=== PATIENT | male | born 1975 ===

== ENCOUNTER 2024-05-18 22:26 | Emergency (ER) | payer SELFPAY ==
[~2024-05-18] VITALS: Ht 162.6 cm; Wt 63.6 kg
[2024-05-18] MEDS ORDERED: INSREG SQ (22:39)
[2024-05-18] MEDS ORDERED: METF-1211 PO (22:39)
[2024-05-18 22:55] LABS: GLUCOMETER DEV NAME(LOC) ER.7; GLUCOSE,POINT OF CARE 231 MG/DL (70-110)
[2024-05-18 23:19] LABS: BASOPHILS % (AUTO) 0.5 % (0.0-2.0); EOSINOPHILS % (AUTO) 1.4 % (1.0-6.0); HEMATOCRIT 42.3 % (41-53); HEMOGLOBIN 14.7 g/dL (13.5-17.5); LYMPHOCYTES # (AUTO) 1.6 K/uL (1.0-4.8); LYMPHOCYTES % (AUTO) 32.2 % (22.0-44.0); MEAN CORPUSCULAR HEMOGLOBIN 34.5 pg (26.0-34.0); MEAN CORPUSCULAR HGB CONC 34.8 G/dL (31.0-37.0); MEAN CORPUSCULAR VOLUME 99 fL (80-100); MONOCYTES # (AUTO) 0.4 K/uL (0.1-1.0); NEUTROPHILS # (AUTO) 2.8 K/uL (1.8-7.7); NEUTROPHILS % (AUTO) 56.9 % (40.0-70.0); PLATELET COUNT (AUTO) 160 K/uL (150-450); RED BLOOD CELL COUNT(AUTO) 4.27 MIL/uL (4.50-5.90); RED CELL DISTRIBUTION WIDTH 12.9 % (11.5-14.5); WHITE BLOOD COUNT (AUTO) 4.9 K/uL (4.5-11.0)
[2024-05-18] MEDS: SODIUM CHLORIDE 0.9% 1,000 ML IV ONE (23:22)
[2024-05-18] MEDS: ONDANSETRON HCL 4 MG/2 ML VIAL IVP ONE (23:23)
[2024-05-18 23:29] LABS: ANION GAP 11 mmol/L (8-16); CALCIUM, TOTAL 8.8 mg/dL (8.8-10.5); CARBON DIOXIDE 26 mmol/L (22-29); CHLORIDE 96 mmol/L (98-107); CREATININE 0.95 mg/dL (0.60-1.30); GLOMERULAR FILTR. RATE CALC > 60 mL/min (>60); GLUCOSE,RANDOM 221 mg/dL (70-110); POTASSIUM 3.7 mmol/L (3.5-5.1); SODIUM SERUM 133 mmol/L (136-145); UREA NITROGEN, BLOOD 10 mg/dL (7-18)
[2024-05-18 23:35] LABS: ALANINE AMINOTRANSFERASE 96 U/L (12-78); ALKALINE PHOSPHATASE 112 U/L (46-116); ASPARTATE AMINOTRANSFERASE 105 U/L (15-37); BILIRUBIN,TOTAL 0.6 mg/dL (0.1-1.0); LIPASE 63 U/L (16-77)
[2024-05-18 23:37] LABS: APPEARANCE,URINE CLEAR (CLEAR); BILIRUBIN,URINE NEGATIVE (NEGATIVE); COLOR,URINE COLORLESS (YELLOW); GLUCOSE, URINE (UA) >=1000 mg/dL (NEGATIVE); KETONES,URINE NEGATIVE (NEGATIVE); LEUKOCYTE ESTERASE ,URINE NEGATIVE (NEGATIVE); NITRATE,URINE NEGATIVE (NEGATIVE); OCCULT BLOOD,URINE NEGATIVE (NEGATIVE); PROTEIN,URINE NEGATIVE (NEGATIVE); SPECIFIC GRAVITIY, URINE 1.004 (1.003-1.030); UROBILINOGEN,URINE <=1.0 mg/dL (<=1.0)
[2024-05-18 23:37] LABS: TROPONIN I-HIGH SENSITIVITY 12 ng/L (<76)
[2024-05-18 23:48] LABS: BACTERIA,URINE None Seen /HPF (None Seen); RBC,URINE None Seen /HPF (0-2); SQUAMOUS EPITHELIAL CELL,UR Few /LPF (None Seen); WBC,URINE None Seen /HPF (0-5)
[2024-05-18] MEDS: IOHEXOL 9 MG/ML 500 ML BOTTLE PO ONE (23:53)
[2024-05-19] MEDS ORDERED: SODIUM CHLORIDE 0.9% 100 ML ONE (00:37)
[2024-05-19] MEDS ORDERED: IOHEXOL 350 MG/ML 100 ML VIAL ONE (00:38)
[2024-05-19] MEDS ORDERED: ACET-66 PO (02:57)
[2024-05-19] MEDS ORDERED: OMEP20 PO (02:57)
[2024-05-19] MEDS ORDERED: MAG30ORA11 PO (02:57)
[2024-05-19 03:32] VITALS: BP 133/71; PULSE 70; RESP 0; TEMP 98.3
== END 2024-05-19 03:58 | disposition home or self-care (01) ==
LOC: EMS 22:26
DX: K29.70 Gastritis, unspecified, without bleeding (principal); E11.9 Type 2 diabetes mellitus without complications; F17.210 Nicotine dependence, cigarettes, uncomplicated; Z88.0 Allergy status to penicillin
CPT/HCPCS: 99285; 96374; 71045; 96361; 80048; 80076; 81001; 82962; 83690; 84484; 85025; 36415; 93005; 74177; 76705; Q9967 ×2; J2405; J7030; J7050